=== PATIENT | female | born 1965 | race Caucasian/White ===

== ENCOUNTER → 2021-08-21 | Day surgery (SDC) | payer OTHER | END | disposition home or self-care (01) | LOC: JRADIR 09:59 | PROVIDERS: ATTEND Internal Medicine Endocrinology, Diabetes & Metabolism | PROC: 0G9G3ZX Drainage of Left Thyroid Gland Lobe, Percutaneous Approach, Diagnostic (ICD-10-PCS; principal; 2021-08-21) | DX: E04.1 Nontoxic single thyroid nodule (principal) | CPT/HCPCS: 10005; 76942; 88173; 88305-TC ==

== ENCOUNTER 2022-04-18 08:00 | Day surgery (SDC) | payer OTHER ==
[2022-04-11 17:16] VITALS: BMI 24.0
[2022-04-18] MEDS ORDERED: BUPIVACAINE HCL/PF 0.5% (5 MG/ML) 30 ML VIAL IJ ONE (11:09)
[2022-04-18] MEDS ORDERED: oxyCODONE HCL 5 MG TABLET PO PRN (12:09)
[2022-04-18] MEDS ORDERED: morphine CARPU-JECT 2 MG/1 ML DISP.SYRIN IVPUSH PRN (12:09)
[2022-04-18] MEDS ORDERED: ACETAMINOPHEN 1000 MG/100 ML BAG IVPB ONE (12:10)
[2022-04-18] MEDS ORDERED: LACTATED RINGERS SOLUTION 1,000 ML IV SCH (12:15)
[2022-04-18 14:41] VITALS: RESP 18
[2022-04-18 17:25] VITALS: BP 110/62; PULSE 70; TEMP 97.1
== END 2022-04-18 18:20 | disposition home or self-care (01) ==
LOC: JASU-SURG 08:00
PROVIDERS: ATTEND Surgery
PROC: 0GBG0ZX Excision of Left Thyroid Gland Lobe, Open Approach, Diagnostic (ICD-10-PCS; principal; 2022-04-18 10:00)
DX: E04.2 Nontoxic multinodular goiter (principal)
CPT/HCPCS: 88307-TC; 94760

== ENCOUNTER 2022-06-20 13:47 | Emergency (ER) | payer OTHER ==
[2022-06-20 14:10] VITALS: BP 119/66; PULSE 81; RESP 18; TEMP 98.8; BMI 23.3
[2022-06-20] MEDS ORDERED: TETRACAINE 0.5% OPHTH SOLN 2 ML BOTTLE ONE (14:36)
[2022-06-20] MEDS ORDERED: TETRACAINE 0.5% OPHTH SOLN 2 ML BOTTLE OS ONE (15:19)
[2022-06-20 15:51] LABS: BASO % 0.9 % (0-2.0); EOS % 1.8 % (0-4.5); HEMATOCRIT 37.6 % (32.4-45.2); HEMOGLOBIN 12.8 GM/dL (10.7-15.3); LYMPH % 37.1 % (8-40); MCH 29.1 pg (25.7-33.7); MEAN CELL VOLUME 85.8 fl (80-96); MEAN PLT VOLUME 8.6 fl (7.5-11.1); MONO % 5.5 % (3.8-10.2); NEUT % 54.7 % (42.8-82.8); PLATELET COUNT 261 10^3/uL (134-434); RBC 4.38 M/mm3 (3.60-5.2); RDW 13.8 % (11.6-15.6)
[2022-06-20] MEDS ORDERED: KETOROLAC TROMETHAMINE 30 MG/1 ML VIAL IM ONE (15:57)
[2022-06-20] MEDS ORDERED: KETOROLAC TROMETHAMINE 30 MG/1 ML VIAL ONE (16:00)
[2022-06-20 16:14] LABS: BLOOD UREA NITROGEN 19.4 mg/dL (7-18); CALCIUM 9.8 mg/dL (8.5-10.1)
[2022-06-20 16:18] LABS: CREATININE 0.9 mg/dL (0.55-1.3)
[2022-06-20 16:40] LABS: ERYTHROCYTE SEDIMENTATION RATE 8 mm/hr (0-30)
== END 2022-06-20 17:16 | disposition home or self-care (01) ==
LOC: JERFT 13:47
PROC: 3E023GC Introduction of Other Therapeutic Substance into Muscle, Percutaneous Approach (ICD-10-PCS; principal; 2022-06-20)
DX: G44.89 Other headache syndrome (principal); H57.12 Ocular pain, left eye
CPT/HCPCS: 36415; 70450-TC; 70480-TC; 80048; 85025; 85651; 99284-25

== ENCOUNTER 2022-10-29 22:37 | Emergency (ER) | payer OTHER ==
[2022-10-29 22:50] VITALS: BP 105/70; PULSE 106; RESP 20; TEMP 99.6; BMI 25.0
[2022-10-30 01:52] LABS: EPI CELLS 4 /uL (0-25.1); HYALINE CASTS 0 /uL (0-3.1); PH,URINE 5.5 (5.0-8.0); URINE APPEARANCE CLEAR; URINE BACTERIA 16 /uL (0-1359); URINE BILIRUBIN NEGATIVE (NEGATIVE); URINE COLOR YELLOW; URINE GLUCOSE (UA) NEGATIVE (NEGATIVE); URINE KETONE NEGATIVE (NEGATIVE); URINE LEUK ESTERASE NEGATIVE (NEGATIVE); URINE NITRITE NEGATIVE (NEGATIVE); URINE PROTEIN NEGATIVE (NEGATIVE); URINE RBC 6 /uL (0-23.9); URINE UROBILINOGEN 0.2 mg/dL (0.2-1.0); URINE WBC 5 /uL (0-25.8)
[2022-10-30] MEDS ORDERED: ACETAMINOPHEN 1000 MG/100 ML BAG IVPB ONE (02:00)
[2022-10-30] MEDS ORDERED: LACTATED RINGERS SOLUTION 1000 ML INFUS.BAG IV ONE (02:00)
[2022-10-30] MEDS ORDERED: ACETAMINOPHEN INJECTION 100 ML IVPB ONE (02:10)
[2022-10-30 02:33] LABS: BASO % 0.3 % (0-2.0); HEMATOCRIT 37.6 % (32.4-45.2); HEMOGLOBIN 12.3 GM/dL (10.7-15.3); LYMPH % 10.1 % (8-40); MCH 28.8 pg (25.7-33.7); MCHC 32.8 g/dl (32.0-36.0); MEAN PLT VOLUME 8.2 fl (7.5-11.1); NEUT % 85.6 % (42.8-82.8); PLATELET COUNT 197 10^3/uL (134-434); RBC 4.27 M/mm3 (3.60-5.2); RDW 13.6 % (11.6-15.6); WHITE BLOOD COUNT 7.8 K/mm3 (4.0-10.0)
[2022-10-30 02:59] LABS: POTASSIUM 3.9 mmol/L (3.5-5.1)
[2022-10-30 03:02] LABS: BLOOD UREA NITROGEN 8.8 mg/dL (7-18)
[2022-10-30 03:05] LABS: CREATININE 0.9 mg/dL (0.55-1.3)
[2022-10-30 03:06] LABS: BILIRUBIN,TOTAL 0.4 mg/dL (0.2-1); TOT PROT 7.5 g/dl (6.4-8.2)
== END 2022-10-30 06:31 | disposition home or self-care (01) ==
LOC: JER 22:37
PROC: 3E033NZ Introduction of Analgesics, Hypnotics, Sedatives into Peripheral Vein, Percutaneous Approach (ICD-10-PCS; principal; 2022-10-30)
DX: K52.9 Noninfective gastroenteritis and colitis, unspecified (principal); R10.30 Lower abdominal pain, unspecified; R30.0 Dysuria; R35.0 Frequency of micturition; R68.83 Chills (without fever); Z20.822 Contact with and (suspected) exposure to COVID-19
CPT/HCPCS: 0241U-QW; 36415; 74176-TC; 80053; 81003; 85025; 87086; 93005; 93010; 99285-25